=== PATIENT | female | born 1950 | race Two or more races ===

== ENCOUNTER 2024-05-01 11:58 | Inpatient (IN) | payer OTHER ==
[~2024-05-01] VITALS: Ht 162.6 cm; Wt 81.2 kg
--- NOTE | 2024-05-01 13:14 | DVH ---
CT CT AB PEL WO CON-NO ORAL OR IV INDICATION: abd pain EXAM DATE: 05/01/2024 12:49 PM COMPARISON: None RADIATION DOSE: CTDIvol: 16 mGy, DLP: 846 mGy*cm PROCEDURE: Helical CT images were obtained of the abdomen and pelvis without IV contrast Sagittal an d coronal reconstructions are provided. ORAL CONTRAST: None. ADDITIONAL IMAGES / REFORMATS: None All CT scans at this medical facility are performed using dose modulation techniques as appropriate t o a performed exam including the following: Automated exposure control was utilized; adjustment of th e MA and/or KV according to patient size; and use of iterative reconstruction technique. FINDINGS: LUNG BASE: Normal. LIVER: Nodular in contour. GALLBLADDER AND BILIARY TREE: No calcified gallstones. Normal caliber wall. No intra- or extrahepatic biliary ductal dilation. PANCREAS: Normal. SPLEEN: Normal. BOWEL: Moderate colonic diverticulosis. Appendix is not seen. ADRENALS: Normal. KIDNEYS AND URETER: Normal. BLADDER: Normal. REPRODUCTIVE ORGANS: Atrophic. LYMPH NODES:No lymphadenopathy. PERITONEUM: No ascites or free air. No other fluid collection. VESSELS: Scattered atherosclerotic calcifications are noted. RETROPERITONEUM: Normal. ABDOMINAL WALL: Normal. BONES: Scattered osseous degenerative changes are noted. IMPRESSION: No acute intraabdominal abnormality. Cirrhosis. Moderate colonic diverticulosis.
[2024-05-01 13:57] LABS: Basophils # (auto) 0.1 10 ^3/uL (0-0.2); Eosinophils # (auto) 0.1 10 ^3/uL (0-0.8); Eosinophils % (auto) 0.9 % (0.0-7.0); Hematocrit 42.7 % (36.0-46.0); Hemoglobin 14.5 g/dL (12.2-16.2); Lymphocytes # (auto) 1.7 10 ^3/uL (0.4-5.4); Mean Corpuscular Hemoglobin 31.6 pg (28.0-32.0); Mean Corpuscular Volume 92.8 fL (80.0-100.0); Monocytes # (auto) 0.7 10 ^3/uL (0-1.3); Monocytes % (auto) 8.1 % (0.0-12.0); Neutrophils # (auto) 5.7 10 ^3/uL (1.6-8.6); Platelet Count (auto) 208 10^3/uL (140-450); Red Cell Distribution Width 13.8 % (11.8-14.3); White Blood Cell 8.3 10^3/uL (4.4-10.8)
[2024-05-01 14:15] LABS: Alanine Aminotransferase 32 U/L (7-40); Anion Gap 7 (5-15); Blood Urea Nitrogen 9 mg/dL (9-23); Calcium 9.8 mg/dL (8.7-10.4); Carbon Dioxide 25 mmol/L (20-31); Chloride 107 mmol/L (98-107); Glucose 101 mg/dL (74-106); Lipase 40 U/L (12-53); Potassium 3.9 mmol/L (3.5-5.1); Sodium 139 mmol/L (136-145); Total Protein 7.8 g/dL (5.7-8.2)
[2024-05-01 14:35] LABS: Urine Bacteria FEW /hpf (None Seen); Urine Blood 2+ /uL (Negative); Urine Clarity Turbid (Clear); Urine Color Light-Yellow (Yellow); Urine Mucus FEW (None Seen); Urine Protein, UAD Negative (Negative); Urine Specific Gravity 1.012 (1.001-1.035); Urine Squamous Epithelial Cell MOD /hpf (<5); Urine Urobilinogen Normal (Negative); Urine WBC 4 /hpf (0 - 5)
[2024-05-01 14:48] LABS: Alkaline Phosphatase 193 U/L (46-116); Aspartate Aminotransferase 53 U/L (13-40); Bilirubin, Total 1.2 mg/dL (0.2-1.0)
--- NOTE | 2024-05-01 16:18 | ED.PDOC ---
GI ASSESSMENT HPI Comments HPI: 73 Y F, presents to the ED with CC of abdominal pain. Patient states, that she has been experiencing RLQ pain since 2200 on 04/30/24, with associated symptoms of nausea and right sided body pressure. Patient denies, tobacco usage, ETOH consumption, or illicit drugs usage. Patient denies fever, chills, body aches, or N/V/D. Patient also complains of right-sided chest pressure nonspecific nonradiating without associated symptoms. Initial Vital Signs: Temp :98.0 BP:141/80 HR:85 RR:16 SpO2: 96 Past Medical History: Denies Past Surgical History: CAESARIAN Social History: Denies smoking, ETOH, or drug use. Medications: No medications. Allergies: NKDA HPI: Poor Historian. Past Medcial History: Past Surgical History: REVIEW OF SYSTEMS: CONSTITUTIONAL: Denies acute: fever, diaphoresis, chills, generalized weakness. HEAD: Denies acute: headache, photophobia Eyes: Denies acute: Double vision, vision loss, eye pain, eye discharge. EARS: Denies acute: tinnitus, hearing loss, ear discharge, ear pain, THROAT: Denies acute: sore throat, swelling, difficulty swallowing , pain with swallowing, change in voice. NECK: Denies acute: neck pain, neck swelling, stiff neck. HEART: Denies acute : palpitations, LUNGS: Denies acute: SOB, wheezing, cough, hemoptysis ABDOMEN: Denies acute: Vomiting, diarrhea, melena , hematemesis, hematochezia SKIN: Denies acute: rash, redness, lesions, itchiness. EXTREMITIES: Denies acute: calf pain, numbness, tingling, weakness, denies pain in extremity. Denies acute: Low back pain. Neuro: Denies acute: focal neurological deficit, motor or sensory focal neurological deficit, tremors, seizure like activity, confusion, dizziness, change in mental status, loss of bowel or bladder function, cauda equina like symptoms. : Denies acute: dysuria, hematuria, flank pain, increase in urinary frequency. PSYCH: Denies acute: hallucination, suicidal ideation, homicidal ideation. FEMALE: Denies acute: abnormal vaginal bleeding, foul odor, unusual discharge. PHYSICAL EXAM: General: no acute distress, awake and alert. Head: normocephalic, atraumatic. Neck: supple, trachea is midline, no swelling. Throat: Normal phonation. Eyes:, no erythema, no purulent discharge, no proptosis, no icterus. Heart: regular rate, regular rhythm, no significant murmur appreciated. Lungs: no apparent respiratory distress, Able to speak in full sentences. No wheezing, no rhonchi, no crackles. No stridors Clear to auscultation bilaterally. Abdomen: Right upper quadrant tender to palpation, non distended, soft, no guarding, no rebound, + bowel sounds. Neuro: Awake, Alert, oriented to name, self, situation, follows commands GCS=15. Speech is normal. Skin: no petechia, no purpura, no cyanosis, non-pale, not jaundice. Lower extremities: --no - Pitting edema no deformity, no focal swelling, no calf TTP. Makes eye contact. moves all four extremities. Face: no apparent facial droop. Ambulating in the ED independently. Chief Complaint: Abnormal LAB's Time Seen by MD: 15:00 Reviewed Notes: Nurses Notes, Medications, Allergies Allergies: Coded Allergies: NO KNOWN ALLERGIES (Unverified , 05/01/24) Information Source: Patient Mode of Arrival: Ambulatory Duration: Since onset Prehospital treatment: None Quality: None Vomitus: None Severity: None Recent: None Recent Hx of: None Pain Location: RLQ Modifying Factors: Nothing Associated sign and symptoms: Nausea Was a procedure done? Was a procedure done?: No GI differential Dx Differential Diagnosis: Gastritis/PUD, Gastroenteritis, Electrolyte Imbalance, Food Poisoning, Bacterial, Viral X-Ray, Labs, Meds, VS Vital Signs Date Time Temp Pulse Resp B/P (MAP) Pulse Ox O2 Delivery O2 Flow Rate FiO2 05/01/24 20:22 97.9 78 160/73 (102) 96 97.9 05/01/24 16:40 98.0 85 16 141/80 (100) 96 98.0 05/01/24 13:43 98.2 96 18 118/71 (87) 96 05/01/24 12:35 98 Lab Test 05/01/24 13:30 05/01/24 00:00 Range/Units White Blood Count 8.3 4.4-10.8 10^3/uL Red Blood Count 4.60 4.0-5.20 10^6/uL Hemoglobin 14.5 12.2-16.2 g/dL Hematocrit 42.7 36.0-46.0 % Mean Corpuscular Volume 92.8 80.0-100.0 fL Mean Corpuscular Hemoglobin 31.6 28.0-32.0 pg Mean Corpuscular Hemoglobin Concent 34.0 32.0-36.0 g/dL Red Cell Distribution Width 13.8 11.8-14.3 % Platelet Count 208 140-450 10^3/uL Mean Platelet Volume 9.0 6.9-10.8 fL Neutrophils (%) (Auto) 69.0 37.0-80.0 % Lymphocytes (%) (Auto) 21.0 10.0-50.0 % Monocytes (%) (Auto) 8.1 0.0-12.0 % Eosinophils (%) (Auto) 0.9 0.0-7.0 % Basophils (%) (Auto) 1.0 0.0-2.0 % Neutrophils # (Auto) 5.7 1.6-8.6 10 ^3/uL Lymphocytes # (Auto) 1.7 0.4-5.4 10 ^3/uL Monocytes # (Auto) 0.7 0-1.3 10 ^3/uL Eosinophils # (Auto) 0.1 0-0.8 10 ^3/uL Basophils # (Auto) 0.1 0-0.2 10 ^3/uL Nucleated Red Blood Cells 0.0 % Sodium Level 139 136-145 mmol/L Potassium Level 3.9 3.5-5.1 mmol/L Chloride Level 107 98-107 mmol/L Carbon Dioxide Level 25 20-31 mmol/L Anion Gap 7 5-15 Blood Urea Nitrogen 9 9-23 mg/dL Creatinine 0.75 0.550-1.02 mg/dL Glomerular Filtration Rate Calc 85 >90 mL/min BUN/Creatinine Ratio 12.0 10.0-20.0 Serum Glucose 101 74-106 mg/dL Lactic Acid Level 1.1 0.4-2.0 mmol/L Calcium Level 9.8 8.7-10.4 mg/dL Total Bilirubin 1.2 H 0.2-1.0 mg/dL Aspartate Amino Transferase (AST) 53 H 13-40 U/L Alanine Aminotransferase (ALT) 32 7-40 U/L Alkaline Phosphatase 193 H 46-116 U/L Troponin I High Sensitivity < 3 L </=34 ng/L Total Protein 7.8 5.7-8.2 g/dL Albumin 4.0 3.2-4.8 g/dL Lipase 40 12-53 U/L Urine Color Light-yellow Yellow Urine Clarity Turbid H Clear Urine pH 6.0 5.0-9.0 Urine Specific [place] 1.012 1.001-1.035 Urine Protein Negative Negative Urine Ketones Negative Negative Urine Blood 2+ H Negative /uL Urine Nitrite Negative Negative Urine Bilirubin Negative Negative Urine Urobilinogen Normal Negative mg/dL Urine Leukocyte Esterase 2+ Negative /uL Urine RBC 4 0 - 4 /hpf Urine WBC 4 0 - 5 /hpf Urine Squamous Epithelial Cells Mod <5 /hpf Urine Bacteria Few H None Seen /hpf Urine Mucus Few None Seen Urine Glucose Normal Normal mg/dL Urine Opiates Screen Neg NEGATIVE Urine Fentanyl Screen Neg NEGATIVE Urine Barbiturates Screen Neg NEGATIVE Urine Phencyclidine Screen Neg NEGATIVE Urine Amphetamines Screen Neg NEGATIVE Urine Benzodiazepines Screen Neg NEGATIVE Urine Cocaine Screen Neg NEGATIVE Urine Cannabinoids Screen Neg NEGATIVE Current Medications Medications (Trade) Dose Ordered Sig/Velia Route Start Time Stop Time Status Last Admin Ceftriaxone Sodium 50 ml @ 100 mls/hr ONCE ONCE IV 05/01/24 16:00 05/01/24 16:29 DC 05/01/24 21:47 Nitroglycerin (Ntrostat Sublingual) 0.4 mg ONCE ONCE SL 05/01/24 16:30 05/01/24 16:31 DC 05/01/24 21:48 Aspirin 325 mg ONCE ONCE PO 05/01/24 16:30 05/01/24 16:31 DC 05/01/24 21:47 [place] [id number] Ph: [phone] DIAGNOSTIC IMAGING Diagnostic Imaging Report : [id number] Signed PATIENT: ZEHRA BALLESTEROS ACCT: [id number] UNIT: [id number] : 1950 LOC: ER ROOM / BED: / AGE / SEX: 73 / F ADM STATUS: REG ER SERVICE 1243 ORDERING PHYSICIAN: JESSICA ARGUETA DO PROCEDURE(s): ABPL - CT AB PEL WO CON-NO ORAL OR IV REASON: abd pain ORDER NUMBER(s): [id number], ACCESSION NUMBER(s): [id number] CT CT AB PEL WO CON-NO ORAL OR IV INDICATION: abd pain EXAM DATE: 05/01/2024 12:49 PM COMPARISON: None RADIATION DOSE: CTDIvol: 16 mGy, DLP: 846 mGy*cm PROCEDURE: Helical CT images were obtained of the abdomen and pelvis without IV contrast Sagittal and coronal reconstructions are provided. ORAL CONTRAST: None. ADDITIONAL IMAGES / REFORMATS: None All CT scans at this medical facility are performed using dose modulation techniques as appropriate to a performed exam including the following: Automated exposure control was utilized; adjustment of the MA and/or KV according to patient size; and use of iterative reconstruction technique. FINDINGS: LUNG BASE: Normal. LIVER: Nodular in contour. GALLBLADDER AND BILIARY TREE: No calcified gallstones. Normal caliber wall. No intra- or extrahepatic biliary ductal dilation. PANCREAS: Normal. SPLEEN: Normal. BOWEL: Moderate colonic diverticulosis. Appendix is not seen. ADRENALS: Normal. KIDNEYS AND URETER: Normal. BLADDER: Normal. REPRODUCTIVE ORGANS: Atrophic. LYMPH NODES:No lymphadenopathy. PERITONEUM: No ascites or free air. No other fluid collection. VESSELS: Scattered atherosclerotic calcifications are noted. RETROPERITONEUM: Normal. ABDOMINAL WALL: Normal. BONES: Scattered osseous degenerative changes are noted. IMPRESSION: No acute intraabdominal abnormality. Cirrhosis. Moderate colonic diverticulosis. ATED BY: TOY MCCAULEY MD DICTATED DATE/TIME: 05/01/241311 SIGNED BY: TOY MCCAULEY MD SIGNED DATE/TIME: 05/01/241311 CC: Time of 1ST Reevaluation: 15:30 Reevaluation 1ST: Unchanged Patient Education/Counseling: Diagnosis, Treatment Family Education/Counseling: No Family Present Comments Patient presented with the 73 Y F, presents to the ED with CC of abdominal pain. workup was initiated. patient was found with the above mentioned diagnosis. the following medications were ordered: ROCEPHIN 1G, ASPIRIN 325MG, NITROGLYCERIN the following tests were ordered: LABS, UA, EKG Patient ED course and VS have been stabilized. Patient has been reassessed in the ED and remained in a stable condition. Pertinent incidental findings were discussed with the patient and/or family. Patient/family voices understanding and is agreeable with plan. Patient has been observed in the ED adequate length of time to insure improvement/stability. Escalation of care considered: Consideration of escalation to observation or admission Patient was ADMITTED to the medicine team for further evaluation and treatment of their presentation. Patient was DISCHARGED home in a stable condition. All the reports of any imaging studies that were ordered by myself were reviewed by myself. Departure 1 Departure Time of Disposition: 17:17 Impression: Primary Impression: Chest pain Additional Impressions: Right upper quadrant pain UTI (urinary tract infection) Disposition: ADMITTED INPATIENT Condition: Guarded Additional Instructions: [place] [address] Ph: [phone] DIAGNOSTIC IMAGING Diagnostic Imaging Report : [id number] Signed PATIENT: ZEHRA BALLESTEROS ACCT: [id number] UNIT: [id number] : 1950 LOC: ER ROOM / BED: / AGE / SEX: 73 / F ADM STATUS: REG ER SERVICE 1243 ORDERING PHYSICIAN: JESSICA ARGUETA DO PROCEDURE(s): ABPL - CT AB PEL WO CON-NO ORAL OR IV REASON: abd pain ORDER NUMBER(s): [id number], ACCESSION NUMBER(s): [id number] CT CT AB PEL WO CON-NO ORAL OR IV INDICATION: abd pain EXAM DATE: 05/01/2024 12:49 PM COMPARISON: None RADIATION DOSE: CTDIvol: 16 mGy, DLP: 846 mGy*cm PROCEDURE: Helical CT images were obtained of the abdomen and pelvis without IV contrast Sagittal and coronal reconstructions are provided. ORAL CONTRAST: None. ADDITIONAL IMAGES / REFORMATS: None All CT scans at this medical facility are performed using dose modulation techniques as appropriate to a performed exam including the following: Automated exposure control was utilized; adjustment of the MA and/or KV according to patient size; and use of iterative reconstruction technique. FINDINGS: LUNG BASE: Normal. LIVER: Nodular in contour. GALLBLADDER AND BILIARY TREE: No calcified gallstones. Normal caliber wall. No intra- or extrahepatic biliary ductal dilation. PANCREAS: Normal. SPLEEN: Normal. BOWEL: Moderate colonic diverticulosis. Appendix is not seen. ADRENALS: Normal. KIDNEYS AND URETER: Normal. BLADDER: Normal. REPRODUCTIVE ORGANS: Atrophic. LYMPH NODES:No lymphadenopathy. PERITONEUM: No ascites or free air. No other fluid collection. VESSELS: Scattered atherosclerotic calcifications are noted. RETROPERITONEUM: Normal. ABDOMINAL WALL: Normal. BONES: Scattered osseous degenerative changes are noted. IMPRESSION: No acute intraabdominal abnormality. Cirrhosis. Moderate colonic diverticulosis. ATED BY: TOY MCCAULEY MD DICTATED DATE/TIME: 05/01/24 1312 SIGNED BY: TOY MCCAULEY MD SIGNED DATE/TIME: 05/01/24 1312 CC: Discharged With: Self Critical Care Note Critical Care Time?: No Stability Stability form required: No I personally scribed for ELLIE,JESSICA J DO ([email or web address]) on 05/01/24 at 16:18. Electronically submitted by Aliya Martin ([email or web address]). I personally scribed for ELLIE,JESSICA J DO ([email or web address]) on 05/01/24 at 16:53. Electronically submitted by Aliya Martin ([email or web address]). I personally scribed for ELLIE,JESSICA J DO ([email or web address]) on 05/01/24 at 20:24. Electronically submitted by Aliya Martin ([email or web address]). I personally scribed for ELLIE,JESSICA J DO ([email or web address]) on 05/01/24 at 20:26. Electronically submitted by Aliya Martin ([email or web address]). I personally scribed for ELLIE,JESSICA J DO ([email or web address]) on 05/01/24 at 20:38. Electronically submitted by Aliya Martin ([email or web address]). I personally scribed for ELLIE,JESSICA J DO ([email or web address]) on 05/01/24 at 22:05. Electronically submitted by Aliya Martin ([email or web address]). ELLIE,JESSICA J DO May 01, 2024 16:18
--- NOTE | 2024-05-01 18:53 | ECG ---
[facility] Test Date: 2024-05-01 Test Time: 12:35:36 Pat Name: ZEHRA BALLESTEROS Department: ER Room: Gender: F [employer]: ER : 1950 Requested By: JESSICA ARGUETA Order Number: [id number] Reading MD: Measurements Intervals [place] Rate: 98 P: 74 VA: 141 QRS: 88 QRSD: 88 T: 54 QT: 343 QTc: 438 Interpretive Statements Sinus rhythm Right atrial enlargement Borderline right axis deviation Low voltage, precordial leads Please click the below link to view image of tracing.
[2024-05-01 21:22] LABS: Triglycerides 66 mg/dL (< 150)
[2024-05-01 21:22] LABS: Opiate Scree,Urine Neg (NEGATIVE)
[2024-05-01 21:23] LABS: Amphetamine Screen, Urine Neg (NEGATIVE); Barbiturate Scree,Urine Neg (NEGATIVE); Benzodiazephine Screen, Urine Neg (NEGATIVE); Cannabinoid Screen, Urine Neg (NEGATIVE); Cocaine Screen, Urine Neg (NEGATIVE); Phencyclidine Screen, Urine Neg (NEGATIVE)
[2024-05-01 21:24] LABS: Cholesterol 180 mg/dL (< 200); HDL Cholesterol 56 mg/dL (40-59)
[2024-05-01 21:26] LABS: LDL Cholesterol 118 mg/dL (< 100)
--- NOTE | 2024-05-01 21:28 | DVHHPRES ---
History of Present Illness Resident Creating Document: CATALINA ARREAGA History of Present Illness This is a 73-year-old female with no past medical history of relevance per patient, no surgical history. The patient presented to the ED due to right upper quadrant pain and right mid back pain. The patient states that the patient had this pain for the 1st time one year ago but got exacerbated yesterday prompting ER visit. The patient described the pain as a sharp pain located in the right upper quadrant that radiates to the right flank, right mid back and right upper shoulder. The patient states that also has associated nausea without vomiting. The patient denies fever or chills. The patient states that the pain gets worse when stretching up and while eating food. The patient denies chest pain, shortness of breath, hematuria, dysuria or any other associated symptoms. Initial labs showed a unremarkable CBC and BNP. Total bilirubin was slightly elevated at 1.2, AST was 53, ALT 32 and alkaline phosphatase 193. Lipase was on normal range and troponins came back negative. Initial CT of the abdomen showed features of cirrhosis and moderate colonic diverticulosis without diverticulitis. On my examination the patient had positive Cortes sign but abdominal CT with no evidence of cholelithiasis or gallbladder sludge. We will perform a gallbladder ultrasound to completely rule out possible cholelithiasis/cholecystitis. Patient will be admitted for further assessment and management. Past Medical History none (per patient) Past Surgical History: None Family History: None Smoke: No ALCOHOL: none Drugs: None Lives: with Family Domestic Violence: Neg Review of Systems Constitutional: No: Fever, Chills, Sweats, Weakness, Malaise, Other Eyes: No: Pain, Vision change, Conjunctivae inflammation, Eyelid inflammation, Other, Redness ENT: No: Ear pain, Ear discharge, Nose pain, Nose discharge, Nose congestion, Mouth pain, Mouth swelling, Throat pain, Throat swelling, Other Respiratory: No: Cough, Dry, Shortness of breath, SOB with excertion, Wheezing, Hemoptysis, Pleuritic Pain, Sputum, Wheezing, Other Cardiovascular: No: Chest Pain, Palpitations, Orthopnea, Paroxysmal Noc. Dyspnea, Edema, Lt Headedness, Other Gastrointestinal: Nausea, Abdominal Pain; No: Vomiting, Diarrhea, Constipation, Melena, Hematochezia, Other Genitourinary: No Dysuria, No Frequency, No Incontinence, No Hematuria, No Retention, No Other Musculoskeletal: No: other, neck pain, shoulder pain, arm pain, back pain, hand pain, leg pain, foot pain Skin: No: Rash, Lesions, Jaundice, Bruising, Other Neurological: No: Weakness, Numbness, Incoordination, Change in speech, Confusion, Seizures, Other Allergies: Coded Allergies: NO KNOWN ALLERGIES (Unverified , 05/01/24) Medications Current Medications Medications Dose Ordered Sig/Velia Route Start Time Stop Time Status Last Admin Dose Admin Acetaminophen/ Hydrocodone Bitart 1 tab Q4HP PRN PO 05/01/24 20:45 Exam Vital Signs Vital Signs Date Time Temp Pulse Resp B/P (MAP) Pulse Ox O2 Delivery O2 Flow Rate FiO2 05/01/24 20:22 97.9 78 160/73 (102) 96 97.9 05/01/24 16:40 16 General Appearance: Alert, Oriented X3, Cooperative, No acute distress HEENT: Atraumatic, PERRLA, EOMI, Mucous membr. moist/pink Respiratory: Clear to auscultation, Normal air movement Cardiovascular: Regular rate, Normal S1, Normal S2, No murmurs Abdominal: Normal bowel sounds, Soft, No tenderness, No hepatospenomegaly Extremities: No clubbing, No cyanosis, No edema, Normal pulses Skin: No rashes, No breakdown, No significant lesion Neuro: Normal gait, Normal speech, Strength at 5/5 X4 ext, Normal tone, Sensation intact, Cranial nerves 3-12 NL, Reflexes 2+ Psych/Mental Status: Mental status NL, Mood NL Labs/Xrays Labs Test 05/01/24 20:47 05/01/24 13:30 05/01/24 00:00 Range/Units White Blood Count 8.3 4.4-10.8 10^3/uL Red Blood Count 4.60 4.0-5.20 10^6/uL Hemoglobin 14.5 12.2-16.2 g/dL Hematocrit 42.7 36.0-46.0 % Mean Corpuscular Volume 92.8 80.0-100.0 fL Mean Corpuscular Hemoglobin 31.6 28.0-32.0 pg Mean Corpuscular Hemoglobin Concent 34.0 32.0-36.0 g/dL Red Cell Distribution Width 13.8 11.8-14.3 % Platelet Count 208 140-450 10^3/uL Mean Platelet Volume 9.0 6.9-10.8 fL Neutrophils (%) (Auto) 69.0 37.0-80.0 % Lymphocytes (%) (Auto) 21.0 10.0-50.0 % Monocytes (%) (Auto) 8.1 0.0-12.0 % Eosinophils (%) (Auto) 0.9 0.0-7.0 % Basophils (%) (Auto) 1.0 0.0-2.0 % Neutrophils # (Auto) 5.7 1.6-8.6 10 ^3/uL Lymphocytes # (Auto) 1.7 0.4-5.4 10 ^3/uL Monocytes # (Auto) 0.7 0-1.3 10 ^3/uL Eosinophils # (Auto) 0.1 0-0.8 10 ^3/uL Basophils # (Auto) 0.1 0-0.2 10 ^3/uL Nucleated Red Blood Cells 0.0 % Sodium Level 139 136-145 mmol/L Potassium Level 3.9 3.5-5.1 mmol/L Chloride Level 107 98-107 mmol/L Carbon Dioxide Level 25 20-31 mmol/L Anion Gap 7 5-15 Blood Urea Nitrogen 9 9-23 mg/dL Creatinine 0.75 0.550-1.02 mg/dL Glomerular Filtration Rate Calc 85 >90 mL/min BUN/Creatinine Ratio 12.0 10.0-20.0 Serum Glucose 101 74-106 mg/dL Lactic Acid Level 1.1 0.4-2.0 mmol/L Calcium Level 9.8 8.7-10.4 mg/dL Total Bilirubin 1.2 H 0.2-1.0 mg/dL Aspartate Amino Transferase (AST) 53 H 13-40 U/L Alanine Aminotransferase (ALT) 32 7-40 U/L Alkaline Phosphatase 193 H 46-116 U/L Total Protein 7.8 5.7-8.2 g/dL Albumin 4.0 3.2-4.8 g/dL Lipase 40 12-53 U/L Urine Color Light-yellow Yellow Urine Clarity Turbid H Clear Urine pH 6.0 5.0-9.0 Urine Specific [place] 1.012 1.001-1.035 Urine Protein Negative Negative Urine Ketones Negative Negative Urine Blood 2+ H Negative /uL Urine Nitrite Negative Negative Urine Bilirubin Negative Negative Urine Urobilinogen Normal Negative mg/dL Urine Leukocyte Esterase 2+ Negative /uL Urine RBC 4 0 - 4 /hpf Urine WBC 4 0 - 5 /hpf Urine Squamous Epithelial Cells Mod <5 /hpf Urine Bacteria Few H None Seen /hpf Urine Mucus Few None Seen Urine Glucose Normal Normal mg/dL Assessment/Plan Assessment/Plan Assesment/Plan Acute abdominal pain in the right upper quadrant and right mid back, R/O cholelithiasis/cholecystitis -positive Cortes's sign on physical exam -CT scan of the abdomen and pelvis showed cirrhosis with moderate colonic diverticulosis, no evidence of cholelithiasis/cholecystitis -ordered abdominal/gallbladder ultrasound -start normal saline at 75 cc/hour -NPO -[place] for pain modulation -lipase was on normal range at 40 UTI, R/O right sided pyelonephritis -patient had right costovertebral angle tenderness -UA positive suggesting UTI -no fever, no leukocytosis -start IV ceftriaxone -CT scan of the abdomen showed unremarkable kidneys -ordered abdominal ultrasound Acute transaminitis in the setting of liver cirrhosis -AST was 53, ALT 32, alkaline phosphatase 193 -avoid hepatotoxic medications -monitor liver enzymes -ordered abdominal ultrasound for better overview of liver, right kidney and gallbladder Possible viral gastroenteritis -IV fluids -NPO -Symptomatic management and electrolytes correction Goals of care discussed with the patient at bedside Plan discussed with Dr. Knight Plan discussed with: Patient My Orders Orders - CATALINA ARREAGA Procedure Category Date Status Time Admit ADMIT 05/01/24 Transmitted 20:44 Code Status CODE 05/01/24 Transmitted 20:44 Vital Signs ITZEL 05/01/24 In Process 20:44 Review Orders With ITZEL 05/01/24 In Process Adm. 20:44 Npo (Nothing By DIET 05/02/24 Transmitted Mouth) Diet Breakfast Notify Md Of Changes ITZEL 05/01/24 In Process From Base 20:44 Advance Directive ITZEL 05/01/24 In Process 20:44 Lipid Panel LAB 05/01/24 In Process 20:44 Urine Bacterial JENNIFER 05/01/24 In Process Culture 20:44 Patient Condition ORDERS 05/01/24 Transmitted 20:44 Allergies ITZEL 05/01/24 In Process 20:44 Hydrocodone-Acet PHA 05/01/24 In Process 5/325mg Tab ([place] 20:45 Drug Screen LAB 05/01/24 In Process 20:44 Ambulate Every 4hours ITZEL 05/01/24 In Process 20:44 Hemoglobin A1c LAB 05/01/24 In Process 20:44 Gallbladder US 05/01/24 Logged 20:59 Sodium Chloride 0.9% PHA 05/01/24 In Process 21:00 Gallbladder US 05/01/24 Logged 21:06 Date of Service: May 01, 2024 Billing Provider: SIMONE KNIGHT MD Common Visit Codes: 39527-FCVLRYY INP/OBS CARE (HIGH) Secondary Visit Codes: 39025-ADTMNWEC CARE PLAN 30 MINUTES CATALINA ARREAGA RESIDENT May 01, 2024 21:28 SIMONE KNIGHT MD May 04, 2024 20:00
[2024-05-01] MEDS ORDERED: ONDANSETRON ODT 4 MG TAB PO PRN (21:30)
--- NOTE | 2024-05-01 21:44 | DVH ---
CLINICAL INFORMATION: 73 years old, Female; R/O CHOLELITHIASIS. TECHNIQUE: Grayscale sonographic imaging of the right upper quadrant of the abdomen was performed, a ssisted by color Doppler techniques. COMPARISON: None FINDINGS: The gallbladder wall measures 2mm in thickness, within normal limits. No stones are seen . The common bile duct measures 5 mm in diameter, within normal limits. The liver measures 12 cm craniocaudal with heterogeneous echotexture. Portal flow is hepatopetal. No evidence of ascites or pleural effusions. The pancreas is partly obscured, likely by bowel gas. The visualized portions appear normal. The right kidney measures 9.6 cm. There is no hydronephrosis. Right renal cortical echogenicity an d cortical thickness are within normal limits. IMPRESSION: No sonographic evidence of acute cholecystitis. Possible hepatic steatosis versus medical liver disea se.
[2024-05-01] MEDS: cefTRIAXone 1GM/50ML D5W 50 ML IV ONE (21:47)
[2024-05-01] MEDS: ASPirin 325 MG TAB PO ONE (21:47)
[2024-05-01] MEDS: NITROGLYCERIN 0.4 MG SL TAB SL ONE (21:48)
[2024-05-01] MEDS: SODIUM CHLORIDE 0.9% 1,000 ML IV ONE (21:48)
[2024-05-01 23:54] VITALS: BP 138/60; PULSE 86; RESP 16; TEMP 97.8; O2SAT 96
[2024-05-02] VITALS (7 sets, daily range): BP systolic 90–138; BP diastolic 50–65; PULSE 65–86; RESP 16–18; TEMP 97.6–98.2; O2SAT 92–100
[2024-05-02] MEDS: cefTRIAXone 1GM/50ML D5W 50 ML IV ONE (10:51)
[2024-05-02] MEDS: HYDROcodone-ACET 5/325MG TAB PO PRN (10:53)
--- NOTE | 2024-05-02 11:56 | DVHPN2 ---
Subjective Feels better. No pain Reviewed: Care Plan, H&P, Labs, Medications, Previous Orders, Radiology Changes from previous H/P or p: No Changes Objective Vitals Vital Signs Date Time Temp Pulse Resp B/P (MAP) Pulse Ox O2 Delivery O2 Flow Rate FiO2 05/02/24 09:00 98.0 79 18 108/61 (77) 96 98.0 05/01/24 23:54 Room Air* 0 21 Intake/Output Intake and Output 05/02/24 07:00 Intake Total 50 ml Output Total 100 ml Balance -50 ml Intake Oral 0 ml IV Total 50 ml Output Urine Total 100 ml General Appearance: Alert, Oriented X3, Cooperative, No acute distress HEENT: Atraumatic Lungs: Clear to auscultation Cardiovascular: Regular rate Abdomen: Normal bowel sounds, Soft, No tenderness Extremities: No edema Medications Current Medications Medications Dose Ordered Sig/Velia Route Start Time Stop Time Status Last Admin Dose Admin Acetaminophen/ Hydrocodone Bitart 1 tab Q4HP PRN PO 05/01/24 20:45 05/02/24 10:53 1 TAB Ondansetron HCl 4 mg Q4HP PRN PO 05/01/24 21:30 Ceftriaxone Sodium 50 ml @ 100 mls/hr DAILY@09 IV 05/03/24 09:00 Laboratory Results Laboratory Tests 05/01/24 13:30 Chemistry Test 05/01/24 13:30 Albumin 4.0 g/dL (3.2-4.8) Calcium Level 9.8 mg/dL (8.7-10.4) Total Protein 7.8 g/dL (5.7-8.2) Lipid panel Test 05/01/24 13:30 05/01/24 20:47 Lipase 40 U/L (12-53) Cholesterol Level 180 mg/dL (< 200) HDL Cholesterol 56 mg/dL (40-59) Triglycerides Level 66 mg/dL (< 150) LFT Test 05/01/24 13:30 Alanine Aminotransferase (ALT) 32 U/L (7-40) Alkaline Phosphatase 193 U/L (46-116) H Aspartate Amino Transferase (AST) 53 U/L (13-40) H Total Bilirubin 1.2 mg/dL (0.2-1.0) H HgA1c, TSH Test 05/01/24 20:47 Hemoglobin A1c 5.4 % A1C (<5.7) Urinalysis Test 05/01/24 00:00 Urine Color Light-yellow (Yellow) Urine Clarity Turbid (Clear) H Urine pH 6.0 (5.0-9.0) Urine Specific [place] 1.012 (1.001-1.035) Urine Protein Negative (Negative) Urine Ketones Negative (Negative) Urine Blood 2+ /uL (Negative) H Urine Nitrite Negative (Negative) Urine Bilirubin Negative (Negative) Urine Urobilinogen Normal mg/dL (Negative) Urine Leukocyte Esterase 2+ /uL (Negative) Urine RBC 4 /hpf (0 - 4) Urine WBC 4 /hpf (0 - 5) Urine Squamous Epithelial Cells Mod /hpf (<5) Urine Bacteria Few /hpf (None Seen) H Urine Mucus Few (None Seen) Urine Glucose Normal mg/dL (Normal) Microbiology Microbiology Date/Time Source Procedure Growth Status 05/01/24 00:00 Voided Urine Urine Culture - Preliminary Resulted Assessment/Plan Assessment/Plan Abdominal pain/right flank pain UTI/likely cause of the pain Hepatic steatosis/questionable cirrhosis/slightly elevated liver function tests Diverticulosis Atherosclerotic vascular disease Degenerative joint disease Unclear why patient was on hospice Plan: Continue current plan of care with IV antibiotic daily. Possible home tomorrow if no recurrence of pain Plan discussed with: Patient, Other (Nursing) My Orders Orders - ROBERT DIAS MD Procedure Category Date Status Time Prothrombin Time W/ LAB 05/02/24 Logged INR 11:16 Ceftriaxone 1gm/50ml PHA 05/03/24 In Process D5w (Rocephin) 09:00 Date of Service: May 02, 2024 Billing Provider: ROBERT DIAS MD Common Visit Codes: [id number] INP/OBS CARE(MOD) ROBERT DIAS MD May 02, 2024 11:56
[2024-05-02 12:46] LABS: INR 1.11 (0.9-1.15); Prothrombin Time 11.7 sec (9.3-11.8)
[2024-05-03 01:00] VITALS: BP 98/68; PULSE 82; RESP 18; TEMP 98.4; O2SAT 96
[2024-05-03 05:00] VITALS: BP 100/68; PULSE 78; RESP 18; TEMP 98.4; O2SAT 96
[2024-05-03] MEDS: cefTRIAXone 1GM/50ML D5W 50 ML IV SCH (08:40)
--- NOTE | 2024-05-03 12:57 | DVHDS2 ---
Discharge Summary Date of Admission May 01, 2024 at 20:44 Date of Discharge: May 03, 2024 Admitting Diagnosis Abdominal pain Labs/Diagnostic Data: Laboratory Results Test 05/02/24 12:02 05/01/24 20:47 05/01/24 13:30 05/01/24 00:00 Prothrombin Time 11.7 sec (9.3-11.8) Prothrombin Time INR 1.11 (0.9-1.15) Hemoglobin A1c 5.4 % A1C (<5.7) Troponin I High Sensitivity < 3 ng/L (</=34) Triglycerides Level 66 mg/dL (< 150) Cholesterol Level 180 mg/dL (< 200) LDL Cholesterol 118 mg/dL (< 100) HDL Cholesterol 56 mg/dL (40-59) White Blood Count 8.3 10^3/uL (4.4-10.8) Red Blood Count 4.60 10^6/uL (4.0-5.20) Hemoglobin 14.5 g/dL (12.2-16.2) Hematocrit 42.7 % (36.0-46.0) Mean Corpuscular Volume 92.8 fL (80.0-100.0) Mean Corpuscular Hemoglobin 31.6 pg (28.0-32.0) Mean Corpuscular Hemoglobin Concent 34.0 g/dL (32.0-36.0) Red Cell Distribution Width 13.8 % (11.8-14.3) Platelet Count 208 10^3/uL (140-450) Mean Platelet Volume 9.0 fL (6.9-10.8) Neutrophils (%) (Auto) 69.0 % (37.0-80.0) Lymphocytes (%) (Auto) 21.0 % (10.0-50.0) Monocytes (%) (Auto) 8.1 % (0.0-12.0) Eosinophils (%) (Auto) 0.9 % (0.0-7.0) Basophils (%) (Auto) 1.0 % (0.0-2.0) Neutrophils # (Auto) 5.7 10 ^3/uL (1.6-8.6) Lymphocytes # (Auto) 1.7 10 ^3/uL (0.4-5.4) Monocytes # (Auto) 0.7 10 ^3/uL (0-1.3) Eosinophils # (Auto) 0.1 10 ^3/uL (0-0.8) Basophils # (Auto) 0.1 10 ^3/uL (0-0.2) Nucleated Red Blood Cells 0.0 % Sodium Level 139 mmol/L (136-145) Potassium Level 3.9 mmol/L (3.5-5.1) Chloride Level 107 mmol/L (98-107) Carbon Dioxide Level 25 mmol/L (20-31) Anion Gap 7 (5-15) Blood Urea Nitrogen 9 mg/dL (9-23) Creatinine 0.75 mg/dL (0.550-1.02) Glomerular Filtration Rate Calc 85 mL/min (>90) BUN/Creatinine Ratio 12.0 (10.0-20.0) Serum Glucose 101 mg/dL (74-106) Lactic Acid Level 1.1 mmol/L (0.4-2.0) Calcium Level 9.8 mg/dL (8.7-10.4) Total Bilirubin 1.2 mg/dL (0.2-1.0) Aspartate Amino Transferase (AST) 53 U/L (13-40) Alanine Aminotransferase (ALT) 32 U/L (7-40) Alkaline Phosphatase 193 U/L (46-116) Total Protein 7.8 g/dL (5.7-8.2) Albumin 4.0 g/dL (3.2-4.8) Lipase 40 U/L (12-53) Urine Color Light-yellow (Yellow) Urine Clarity Turbid (Clear) Urine pH 6.0 (5.0-9.0) Urine Specific [place] 1.012 (1.001-1.035) Urine Protein Negative (Negative) Urine Ketones Negative (Negative) Urine Blood 2+ /uL (Negative) Urine Nitrite Negative (Negative) Urine Bilirubin Negative (Negative) Urine Urobilinogen Normal mg/dL (Negative) Urine Leukocyte Esterase 2+ /uL (Negative) Urine RBC 4 /hpf (0 - 4) Urine WBC 4 /hpf (0 - 5) Urine Squamous Epithelial Cells Mod /hpf (<5) Urine Bacteria Few /hpf (None Seen) Urine Mucus Few (None Seen) Urine Glucose Normal mg/dL (Normal) Urine Opiates Screen Neg (NEGATIVE) Urine Fentanyl Screen Neg (NEGATIVE) Urine Barbiturates Screen Neg (NEGATIVE) Urine Phencyclidine Screen Neg (NEGATIVE) Urine Amphetamines Screen Neg (NEGATIVE) Urine Benzodiazepines Screen Neg (NEGATIVE) Urine Cocaine Screen Neg (NEGATIVE) Urine Cannabinoids Screen Neg (NEGATIVE) Other Laboratory Tests 05/01/24 13:30 Brief Hx & Hospital Course: 73-year-old lady admitted to the hospital from the emergency room because abdominal pain. CT scan showed diverticulosis and liver cirrhosis. Ultrasound showed hepatic steatosis. Urine showed UTI. Patient remained pain-free during the hospital stay. Her alk-phos was slightly elevated at 193. Her INR was 1.1. Troponin negative. Her AST was 53. Patient is being discharged home on p.o. antibiotics and to follow with primary care physician. She is stable for discharge. Patient does not qualify to be on hospice Condition at Discharge: Good Final Diagnosis/Problems List Abdominal pain UTI Hepatic steatosis and questionable cirrhosis Secondary Diagnosis: Degenerative joint disease Atherosclerotic vascular disease Discharge Disposition: Home Discharge Instruct/Medications Diet: Regular Activity: No Restrictions, As Tolerated Follow Up/Referral: PCP within one week Medications: Cephalexin 250 mg 3 times a day for five days for UTI Discharge Statement: "Patient was advised to return to the ER or call 911 if any headaches, dizziness, shortness of breath, chest pain, abdominal pain, bleeding, fevers, or worsening of medical condition. Patient was counseled about treatment plan, medications, possible side effects, patientverbalized understanding. All questions were answered to the best of my ability. This discharge took greater then 30 minutes in planning, reviewing documentation, counseling the patient, and discussing with other team members." ASSESSMENT ASSESSMENT Assessment Date of Service: May 03, 2024 Billing Provider: ROBERT DIAS MD Common Visit Codes: [id number] DISCH DAY <30MIN ROBERT DIAS MD May 03, 2024 12:57
[2024-05-03] MEDS ORDERED: CEPH250C PO (13:02)
[2024-05-03 13:05] VITALS: BP 100/63; PULSE 80; RESP 18; TEMP 98.7; O2SAT 96
== END 2024-05-03 14:18 | disposition home or self-care (01) | DRG 690 ==
LOC: ER 12:01 → OVERFLOW 20:44 → CENTRAL 23:23
PROVIDERS: ADMIT Student in an Organized Health Care Education/Training Program; ATTEND Internal Medicine
DX: N30.01 Acute cystitis with hematuria (principal); K57.30 Diverticulosis of large intestine without perforation or abscess without bleeding; K74.60 Unspecified cirrhosis of liver; R74.01 Elevation of levels of liver transaminase levels; K76.0 Fatty (change of) liver, not elsewhere classified; I70.90 Unspecified atherosclerosis
CPT/HCPCS: 36415; 74176; 76705; 80053; 80061; 80307; 81001; 83036; 83605; 83690; 84484; 85025; 85610; 87086; 93005; G0378